=== PATIENT | male | born 1965 | race Caucasian/White ===

== ENCOUNTER → 2020-04-06 | Outpatient (CLI) | payer BC ==
[2020-04-06 11:06] LABS: Basophils # (A) 0.1 k/uL (0-0.2); Basophils % (A) 1 %; Eosinophils # (A) 0.3 k/uL (0-0.7); Eosinophils % (A) 3 %; HCT 45.8 % (39.0-53.0); HGB 14.6 gm/dL (13.0-17.5); Lymphocytes # (A) 2.2 k/uL (1.0-4.8); Lymphocytes % (A) 22 %; MCH 27.5 pg (25.0-35.0); MCHC 31.8 g/dL (31.0-37.0); MCV 86.4 fL (80.0-100.0); Mean Platelet Volume 6.9; Monocytes # (A) 0.4 k/uL (0-1.0); Monocytes % (A) 4 %; Neutrophils # (A) 6.8 k/uL (1.3-7.7); Neutrophils % (A) 68 %; Platelet Count 240 k/uL (150-450); RDW 13.9 % (11.5-15.5)
[2020-04-06 11:10] LABS: Potassium 4.5 mmol/L (3.5-5.1)
== END | disposition home or self-care (01) ==
LOC: LABPAT 09:33
PROVIDERS: ATTEND Orthopaedic Surgery
DX: Z01.818 Encounter for other preprocedural examination (principal); M23.92 Unspecified internal derangement of left knee
CPT/HCPCS: 36415; 80051; 85025; 93005

== ENCOUNTER 2020-04-12 07:05 | Day surgery (SDC) | payer BC ==
[2020-04-09 15:36] VITALS: BMI 59.1
--- NOTE | 2020-04-11 13:53 | HP ---
HISTORY AND PHYSICAL DATE OF SURGERY: 04/12/2020 Ronnie Rowell is a 54-year-old patient seen with progressive left knee pain. After treatment options were discussed with him, he elected to proceed with left knee arthroscopy. Consent was obtained. PAST MEDICAL HISTORY: Hypertension. PAST SURGICAL HISTORY: Noncontributory. DAILY MEDICATIONS: Antihypertensive. ALLERGIES: None. SOCIAL HISTORY: Denies tobacco use. PHYSICAL EVALUATION OF THE LEFT KNEE: His range of motion is 0-120. Mild effusion. Tenderness medial joint line, tenderness lateral joint line. Positive medial Maldonado's. Positive lateral Maldonado's. Ligaments stable. Hip rotation without pain. Distal neurovascular exam is intact. RADIOGRAPHS OF THE LEFT KNEE: Reveal some mild osteoarthritic changes. An MRI of the left knee revealed a medial meniscal tear, lateral meniscal tear. Moderate effusion. IMPRESSION: 1. Internal derangement, left knee with medial and lateral meniscal tears. 2. Left knee osteoarthritis. 3. Hypertension. 4. Morbid obesity. PLAN: Left knee arthroscopy with partial meniscectomy, partial synovectomy and debridement. MMODL / IJN: [id number] /
[~2020-04-12 07:05] MED LIST: DEXAMETHASONE SOD PHOSPHATE 10 MG/ML 1 ML VIAL IV ONE; LACTATED RINGERS 1,000 ML IV SCH; LIDOCAINE 1% (10MG/ML) FOR IV START INTRADERMA PRN; ONDANSETRON 4 MG/2 ML VIAL IVP ONE; ceFAZolin 3 GM in SODIUM CHLORIDE 0.9% 100 ML IVPB ONE
[2020-04-12] MEDS ORDERED: ONDANSETRON 4 MG/2 ML VIAL ONE (07:43)
[2020-04-12] MEDS ORDERED: fentaNYL (PF) 50 MCG/ML 2 ML AMP ONE (08:20)
[2020-04-12] MEDS ORDERED: LIDOCAINE 1% INJ 10MG/ML (20 ML MDV) ONE (08:20)
[2020-04-12] MEDS ORDERED: PROPOFOL 10 MG/ML 20 ML VIAL IV ONE (08:20)
[2020-04-12] MEDS ORDERED: SUCCINYLCHOLINE CHLORIDE VIAL 200 MG/10 ML VIAL IV ONE (08:20)
[2020-04-12] MEDS ORDERED: MIDAZOLAM 2 MG/2 ML VIAL ONE (08:20)
[2020-04-12] MEDS ORDERED: BUPIVACAINE (PF) 0.25% 30 ML VIAL INTRAARTIC ONE ×2 (08:50→09:05)
--- NOTE | 2020-04-12 09:21 | P.OP ---
Date of Procedure: 04/12/20 Preoperative Diagnosis: Internal derangement left knee Postoperative Diagnosis: 1. Tear medial meniscus left knee 2. Grade 4 chondromalacia medial femoral condyle left knee 3. Grade 3/4 chondromalacia patellofemoral joint left knee 4. Medial plica left knee 5. Reactive synovitis medial, lateral and suprapatellar compartments left knee Procedure(s) Performed: 1. Arthroscopic partial medial meniscectomy left knee 2. Arthroscopic chondroplasty medial femoral condyle left knee 3. Arthroscopic microfracture medial femoral condyle left knee 4. Arthroscopic chondroplasty patellofemoral joint left knee 5. Arthroscopic resection medial plica left knee 6. Arthroscopic partial synovectomy medial, lateral and suprapatellar compartments left knee Anesthesia: ALEXA, local Surgeon: Chandler Powell Estimated Blood Loss (ml): 7 Pathology: none sent Condition: stable Disposition: PACU Indications for Procedure: 54-year-old patient seen with progressive left knee pain. After treatment options were discussed, he elected to proceed with arthroscopy. Operative Findings: See description of procedure Description of Procedure: Patient was taken to the operative suite. Patient underwent a general anesthetic by the department of anesthesia. Patient was given preoperative antibiotics. The left lower extremity was placed in a well-padded arthroscopic leg hauser. The left leg was prepped and draped in the normal sterile orthopedic fashion. A lateral parapatellar and suprapatellar incision was made. Trochars were inserted. Arthroscopy was initiated. Suprapatellar pouch revealed diffuse thick reactive synovitis. The patellofemoral joint appeared to articulate congruently. There was grade 3/4 chondromalacia involving the patella and femoral sulcus with some osteochondral tears present. The scope was guided into the medial gutter. There was a plica which impinged along the medial femoral condyle with range of motion and no loose bodies were identified. The scope was then guided into the medial compartment. A medial parapatellar incision was made. Trocar inserted followed by probe. There was a radial tear involving the posterior horn medial meniscus. There were grade 4 chondromalacia changes of medial femoral condyle with large osteochondral flap tears. There was thick reactive synovitis anteriorly. I performed a partial medial meniscectomy. I performed a chondroplasty of the medial femoral condyle. I performed a partial synovectomy. There was no exposed bone medial femoral condyle. I performed a microfracture to the area penetrated the bone with resultant bleeding at the microfracture site. The residual meniscus was stable. There was good decompression of the synovitis. Scope and probe were then guided into the intercondylar notch. Cruciates were identified, probed and fo und to be stable. The scope and probe were then guided into lateral compartment. The lateral meniscus was probed and found to be stable. There were grade 2 chondromalacia changes lateral compartment with no osteochondral tears present. There was thick synovitis anteriorly. I introduced a motorized shaver and performed a partial synovectomy decompressing reactive synovitis. There was good decompression of the synovitis. The scope was in guided back into the suprapatellar compartment. I introduced a motorized shaver into the super compartment. I debrided some piecemeal fragments of meniscus I encountered. I performed a chondroplasty of the patella and femoral sulcus getting down to stable osteochondral tissue. I performed a partial synovectomy decompressing the thick reactive synovitis. The shaver was removed. There appeared be good decompression of synovitis. The residual osteochondral surface of the patellofemoral joint appeared stable. I took one more look on the entire knee, no residual debris. Instruments were now removed from the joint. The joint was infiltrated with .25% Marcaine. Steri-Strips were applied to the portal sites. Sterile dressings were applied. The patient was placed into a HENRY hose. No tourniquet was utilized. The patient was awakened, transferred to a bed and taken to recovery stable satisfactory condition.
[2020-04-12 09:27] VITALS: TEMP 97.5
[2020-04-12] MEDS: HYDROmorphone 0.5 MG/0.5 ML SYRINGE IVP PRN ×2 (09:27→09:34)
[2020-04-12] MEDS ORDERED: HYDROcodone/APAP 7.5-325MG 1 EACH TAB ONE (10:02)
[2020-04-12] MEDS ORDERED: HYDROcodone/APAP 7.5-325MG 1 EACH TAB PO ONE (10:05)
[2020-04-12 10:51] VITALS: BP 125/74; PULSE 77; RESP 12
== END 2020-04-12 10:57 | disposition home or self-care (01) ==
LOC: OR 07:05
PROVIDERS: ATTEND Orthopaedic Surgery
DX: M23.222 Derangement of posterior horn of medial meniscus due to old tear or injury, left knee (principal); M17.12 Unilateral primary osteoarthritis, left knee; M65.862 Other synovitis and tenosynovitis, left lower leg; M22.42 Chondromalacia patellae, left knee; M67.52 Plica syndrome, left knee; I10 Essential (primary) hypertension; G47.33 Obstructive sleep apnea (adult) (pediatric); E66.01 Morbid (severe) obesity due to excess calories; Z68.43 Body mass index [BMI] 50.0-59.9, adult; Z99.89 Dependence on other enabling machines and devices; Z79.899 Other long term (current) drug therapy
CPT/HCPCS: 29881; 29879; J2250; J0330; J1100; J0690; J2405; J2001; J3010; J2704; J1170

== ENCOUNTER 2021-06-12 09:21 | Emergency (ER) | payer BC ==
[2021-06-12 09:33] VITALS: BP 195/101; PULSE 76; RESP 18; TEMP 98.3
[2021-06-12] MEDS ORDERED: KETOROLAC 15 MG/ML 1 ML VIAL IM STA (09:54)
--- NOTE | 2021-06-12 10:47 | XR ---
EXAMINATION TYPE: XR knee 4V LT DATE OF EXAM: 06/12/2021 CLINICAL HISTORY: pain TECHNIQUE: 4 views of the left knee are obtained. COMPARISON: None. FINDINGS: There is no acute fracture/dislocation. The tri-compartment joint spaces appear moderatel y narrowed. The overlying soft tissue appears unremarkable. Small joint effusion. IMPRESSION: There is no acute fracture or dislocation ICD 10 NO FRACTURE, INITIAL EVALUATION
--- NOTE | 2021-06-12 10:53 | ED ---
Lower Extremity Injury HPI - General Chief Complaint: Extremity Injury, Lower Stated Complaint: Lt Knee Pain Source: patient, RN notes reviewed Mode of arrival: ambulatory Limitations: no limitations - History of Present Illness Initial Comments: Patient is a 55-year-old male that presents to emergency department complaining of left knee pain. He notes that he has a history of chronic bilateral knee pain as he is a artery set individual. He notes that over the last 1-2 days his left knee has become increasingly more painful. He notes that he does take Motrin for pain at home but it is not help. He notes that he has tried calling her orthopedics office is to see if they get in as primary care. He notes he can emergency room as a last resort for evaluation. He denied any injury or trauma to his left knee. He denied any chest pain shortness of breath headache nausea vomiting diarrhea constipation fever fatigue chills. He denied any weakness numbness tingling loss of sensation range of motion in his left lower extremity. - Related Data Home Medications Medication Instructions Recorded Confirmed hydroCHLOROthiazide 25 mg PO DAILY 04/09/20 04/09/20 Previous Rx's Medication Instructions Recorded HYDROcodone/APAP 7.5-325MG [[place] 1 each PO Q6HR PRN #15 tab 04/12/20 7.5] Allergies Allergy/AdvReac Type Severity Reaction Status Date / Time No Known Allergies Allergy Verified 06/12/21 09:30 Review of Systems ROS Statement: Those systems with pertinent positive or pertinent negative responses have been documented in the HPI. ROS Other: All systems not noted in ROS Statement are negative. Past Medical History Past Medical History: Hypertension, Sleep Apnea/CPAP/BIPAP History of Any Multi-Drug Resistant Organisms: None Reported Past Surgical History: No Surgical Hx Reported Additional Past Surgical History / Comment(s): colonoscopy Past Anesthesia/Blood Transfusion Reactions: No Reported Reaction Past Psychological History: No Psychological Hx Reported Smoking Status: Never smoker Past Alcohol Use History: Occasional Past Drug Use History: None Reported - Past Family History Mother Family Medical History: No Reported History General Exam Limitations: no limitations General appearance: alert, in no apparent distress, obese (Morbidly) Head exam: Present: atraumatic, normocephalic, normal inspection Eye exam: Present: normal appearance, PERRL, EOMI. Absent: scleral icterus, conjunctival injection, periorbital swelling Neck exam: Present: normal inspection Respiratory exam: Present: normal lung sounds bilaterally. Absent: respiratory distress, wheezes, rales, rhonchi, stridor Cardiovascular Exam: Present: regular rate, normal rhythm, normal heart sounds. Absent: systolic murmur, diastolic murmur, rubs, gallop, clicks Left Hip exam: Present: normal inspection, full ROM Upper Leg exam: Present: normal inspection, full ROM Knee exam: Present: normal inspection, full ROM, tenderness (Medial aspect), pain/laxity with valgus, full knee extension. Absent: swelling, abrasion, laceration, pain w/ pronation/supination, posterior draw sign, pain/laxity with varus Neurological exam: Present: alert, oriented X3 Psychiatric exam: Present: normal affect, normal mood Skin exam: Present: warm, dry, intact, normal color. Absent: rash Course Vital Signs 06/12/21 09:30 Temperature 98.3 F Pulse Rate 76 Respiratory 18 Rate Blood Pressure 195/101 O2 Sat by Pulse 97 Oximetry Medical Decision Making - Medical Decision Making Patient is a 55-year-old male complaining of worsening chronic left knee pain. X-ray of left knee, 15 mg of Toradol ordered. Upon examination patient does have valgus stress test pain on the medial aspect of his left knee. X-ray negative for any acute fractures dislocations. Patient most likely has a knee sprain or soft tissue injury, will be given thorough for orthopedics. Case discussed with Dr. Rosa, patient discharge home with follow-up to orthopedics and primary care. - Radiology Data Radiology results: report reviewed, image reviewed X-ray left knee: There is no acute fracture dislocation. Disposition Clinical Impression: Left knee sprain, Left knee pain Disposition: HOME SELF-CARE Condition: Stable Instructions (If sedation given, give patient instructions): Knee Sprain (ED) Additional Instructions: Please return to the Emergency Department if symptoms worsen or any other concerns. Follow-up with primary care 1-2 days. Follow-up with orthopedics as soon as possible. Take Tylenol Motrin as needed for pain. Use as tolerated. Avoid any strenuous activity or exercise. Is patient prescribed a controlled substance at d/c from ED?: No Referrals: Aide Aragon MD [Primary Care Provider] - 1-2 days Kishor Bond PAC [PHYSICIAN ONLINE PROGRAM COORDINATOR] - 1-2 days Time of Disposition: 11:05
== END 2021-06-12 11:00 | disposition home or self-care (01) ==
LOC: EC 09:21
DX: S83.92XA Sprain of unspecified site of left knee, initial encounter (principal); I10 Essential (primary) hypertension; X58.XXXA Exposure to other specified factors, initial encounter
CPT/HCPCS: 99283; 96372; 73564; J1885

== ENCOUNTER 2021-10-17 08:51 | Emergency (ER) | payer BC ==
[2021-10-17] MEDS ORDERED: IBUPROFEN 800 MG TAB PO STA (09:06)
[2021-10-17] MEDS ORDERED: ACETAMINOPHEN TAB 325 MG TAB PO STA (09:06)
[2021-10-17] MEDS ORDERED: SODIUM CHLORIDE 0.9% 50 ML IVPB ONE (10:15)
--- NOTE | 2021-10-17 10:18 | ED ---
URI HPI - General Chief Complaint: Upper Respiratory Infection Stated Complaint: Covid +, Fever Time Seen by Provider: 10/17/21 09:00 Source: patient, RN notes reviewed Mode of arrival: ambulatory Limitations: no limitations - History of Present Illness Initial Comments: This is a 55-year-old male presents emergency Department with chief complaint of COVID-19. Patient states he started with sore throat and fever last night. Patient states that he did at home test which was positive. Patient states his eyes: Respiratory evaluation. He has not had a recent, Motrin he did take some DayQuil this morning. Patient states that he has more sore throat dry cough no shortness of breath no abdominal pain no GI symptoms. - Related Data Home Medications Medication Instructions Recorded Confirmed hydroCHLOROthiazide 25 mg PO DAILY 04/09/20 04/09/20 Previous Rx's Medication Instructions Recorded HYDROcodone/APAP 7.5-325MG [[place] 1 each PO Q6HR PRN #15 tab 04/12/20 7.5] Allergies Allergy/AdvReac Type Severity Reaction Status Date / Time Sulfa (Sulfonamide AdvReac Unknown Verified 10/17/21 08:58 Antibiotics) Review of Systems ROS Statement: Those systems with pertinent positive or pertinent negative responses have been documented in the HPI. ROS Other: All systems not noted in ROS Statement are negative. Past Medical History Past Medical History: Hypertension, Sleep Apnea/CPAP/BIPAP History of Any Multi-Drug Resistant Organisms: None Reported Past Surgical History: No Surgical Hx Reported, Orthopedic Surgery Additional Past Surgical History / Comment(s): colonoscopy Past Anesthesia/Blood Transfusion Reactions: No Reported Reaction Past Psychological History: No Psychological Hx Reported Smoking Status: Never smoker Past Alcohol Use History: Occasional Past Drug Use History: None Reported - Past Family History Mother Family Medical History: No Reported History General Exam Limitations: no limitations General appearance: alert, in no apparent distress Head exam: Present: atraumatic, normocephalic, normal inspection Eye exam: Present: normal appearance, PERRL, EOMI. Absent: scleral icterus, conjunctival injection, periorbital swelling ENT exam: Present: normal exam, normal oropharynx, mucous membranes moist Neck exam: Present: normal inspection, full ROM. Absent: tenderness, menin gismus, lymphadenopathy Respiratory exam: Present: normal lung sounds bilaterally. Absent: respiratory distress, wheezes, rales, rhonchi, stridor Cardiovascular Exam: Present: regular rate, normal rhythm, normal heart sounds. Absent: systolic murmur, diastolic murmur, rubs, gallop, clicks GI/Abdominal exam: Present: soft, normal bowel sounds. Absent: distended, tenderness, guarding, rebound, rigid Course Vital Signs 10/17/21 10/17/21 08:52 09:23 Temperature 102.1 F H Pulse Rate 95 Respiratory 22 20 Rate Blood Pressure 177/89 O2 Sat by Pulse 98 Oximetry Medical Decision Making - Medical Decision Making Patient presented for covid 19, patient did receive monoclonal antibodies vitals are stable patient was given antipyretics did discuss return parameters. - Lab Data Lab Results 10/17/21 Range/Units 09:21 Coronavirus (PCR) Detected A (Not Detectd) Disposition Clinical Impression: COVID-19 Disposition: HOME SELF-CARE Condition: Stable Instructions (If sedation given, give patient instructions): Coronavirus Disease 2019 (COVID-19) Additional Instructions: Please return to the Emergency Department if symptoms worsen or any other concerns. Is patient prescribed a controlled substance at d/c from ED?: No Referrals: Aide Aragon MD [Primary Care Provider] - 1-2 days Time of Disposition: 10:18
[2021-10-17 10:42] VITALS: RESP 18; TEMP 99.2
[2021-10-17] MEDS ORDERED: SOTROVIMAB (EUA) 500 MG in SODIUM CHLORIDE 0.9% 100 ML IVPB ONE (10:45)
[2021-10-17 12:21] VITALS: BP 158/83; PULSE 71
== END 2021-10-17 12:17 | disposition home or self-care (01) ==
LOC: EC 08:51
DX: U07.1 COVID-19 (principal); I10 Essential (primary) hypertension; Z88.2 Allergy status to sulfonamides
CPT/HCPCS: 99283; 87635; Q0247

== ENCOUNTER 2022-04-23 12:25 | Emergency (ER) | payer BC ==
[2022-04-23 13:03] VITALS: TEMP 98.1
[2022-04-23] MEDS ORDERED: methylPREDNISolone SOD SUCCI 125 MG/2 ML VIAL IM ONE (16:33)
[2022-04-23] MEDS ORDERED: HYDROcodone/APAP 10-325MG 1 EACH TAB PO ONE (16:33)
[2022-04-23] MEDS ORDERED: ACET/COD 300 MG/30 MG STARTER PACK 6 TAB BTL PO STA (16:34)
--- NOTE | 2022-04-23 16:38 | ED ---
Back Pain HPI - General Chief Complaint: Back Pain/Injury Stated Complaint: L leg is numb Time Seen by Provider: 04/23/22 15:52 Source: patient Limitations: no limitations - History of Present Illness Initial Comments: Patient is a 56-year-old male who presents to the emergency department with a chief complaint of lower back pain. States symptoms started 2 hours ago. Patient thinks the pain is due to being very overweight. Denies injury states he has been sitting in his chair today. States initially the pain was significant in the left lower back with numbness and tingling down the left leg which has improved. Took Motrin for pain with some relief. Patient states this has happened before several years ago. Denies numbness and tingling in the groin and buttock region. Denies bowel and bladder incontinence and retention. Denies leg weakness. No history of cancer. Denies fever and chills. - Related Data Home Medications Medication Instructions Recorded Confirmed hydroCHLOROthiazide 25 mg PO DAILY 04/09/20 04/09/20 Previous Rx's Medication Instructions Recorded HYDROcodone/APAP 7.5-325MG [[place] 1 each PO Q6HR PRN #15 tab 04/12/20 7.5] Lidocaine 5% Patch [Lidoderm 5% 1 patch TOPICAL DAILY PRN #7 patch 04/23/22 Patch] predniSONE 50 mg PO DAILY #5 tab 04/23/22 Allergies Allergy/AdvReac Type Severity Reaction Status Date / Time Sulfa (Sulfonamide AdvReac Unknown Verified 04/23/22 13:03 Antibiotics) Review of Systems ROS Statement: Those systems with pertinent positive or pertinent negative responses have been documented in the HPI. ROS Other: All systems not noted in ROS Statement are negative. Past Medical History Past Medical History: Hypertension, Sleep Apnea/CPAP/BIPAP History of Any Multi-Drug Resistant Organisms: None Reported Past Surgical History: No Surgical Hx Reported, Orthopedic Surgery Additional Past Surgical History / Comment(s): colonoscopy Past Anesthesia/Blood Transfusion Reactions: No Reported Reaction Past Psychological History: No Psychological Hx Reported Smoking Status: Never smoker Past Alcohol Use History: Occasional Past Drug Use History: None Reported - Past Family History Mother Family Medical History: No Reported History General Exam Limitations: no limitations Course Vital Signs 04/23/22 04/23/22 13:01 17:18 Temperature 98.1 F Pulse Rate 62 58 L Respiratory 20 16 Rate Blood Pressure 188/94 180/87 O2 Sat by Pulse 97 97 Oximetry Medical Decision Making - Medical Decision Making This is a 56-year-old male who presents with lower back pain. Thorough history and examination were performed. No injury. No spinal or paravertebral tenderness. No evidence of focal deficit. Pain improved with symptomatic treatment in the emergency department. Given patient's report of radicular symptoms I will discharge patient with prednisone for musculoskeletal back pain with radiculopathy. He is to follow-up with primary care provider. Dr. Saldaña is my attending. Disposition Clinical Impression: Mechanical back pain Disposition: HOME SELF-CARE Condition: Good Instructions (If sedation given, give patient instructions): Acute Low Back Pain (ED) Additional Instructions: Please take medication as directed. Start prednisone prescription tomorrow. Lidocaine patches are offered [id number]. Check to see if your prescription will be more expensive than [id number] before filling it. Continue to lightly stretch the back. Follow-up with primary care provider in one to 2 weeks if symptoms do not improve who can refer you to natural resource specialist. return to the emergency department if you experience new, concerning, or worsening symptoms. Prescriptions: Lidocaine 5% Patch [Lidoderm 5% Patch] 1 patch TOPICAL DAILY PRN #7 patch PRN Reason: Pain predniSONE 50 mg PO DAILY #5 tab Is patient prescribed a controlled substance at d/c from ED?: No Referrals: Aide Aragon MD [Primary Care Provider] - 1-2 days Time of Disposition: 19:19
[2022-04-23] MEDS ORDERED: LIDOCAINE 5% PATCH TOPICAL SCH (16:45)
[2022-04-23 17:20] VITALS: BP 180/87; PULSE 58; RESP 16
== END 2022-04-23 17:20 | disposition home or self-care (01) ==
LOC: EC 12:25
DX: M54.50 Low back pain, unspecified (principal); R20.0 Anesthesia of skin; I10 Essential (primary) hypertension; Z88.2 Allergy status to sulfonamides; Z79.899 Other long term (current) drug therapy
CPT/HCPCS: 99283; 96372; J2930

== ENCOUNTER → 2023-03-31 | Outpatient (CLI) | payer OTHER ==
[2023-03-31 15:30] LABS: Blood Urea Nitrogen 26.1 mg/dL (9.0-27.0); Carbon Dioxide 21.6 mmol/L (21.6-31.8); Chloride 108 mmol/L (96-109); Potassium 4.5 mmol/L (3.5-5.5); Sodium 142 mmol/L (135-145)
[2023-03-31 16:16] LABS: HCT 37.7 % (39.6-50.0); HGB 12.6 d/dL (12.0-15.0); MCH 30.2 pg (27.0-32.0); MCHC 33.4 d/dL (32.0-37.0); MCV 90.4 FL (80.0-97.0); NRBC Per 100 WBC 0 X 10*3/uL (0.00-0.01); Platelet Count 233 X 10*3/uL (140-440); RBC 4.17 X 10*6/uL (4.40-5.60); WBC 9.04 X 10*3/uL (4.50-10.00)
== END | disposition home or self-care (01) ==
LOC: LABPAT 10:57
PROVIDERS: ATTEND Internal Medicine Interventional Cardiology
DX: Z01.812 Encounter for preprocedural laboratory examination (principal); R94.39 Abnormal result of other cardiovascular function study
CPT/HCPCS: 36415; 80051; 82565; 84520; 85027

== ENCOUNTER 2023-04-03 06:19 | Day surgery (SDC) | payer BC, OTHER ==
[~2023-04-03 06:19] MED LIST changes: +ALPRAZolam 0.25 MG TAB PO PRN; +ALPRAZolam 0.5 MG TAB PO PRN; -DEXAMETHASONE SOD PHOSPHATE 10 MG/ML 1 ML VIAL IV ONE; +HEPARIN SODIUM,PORCINE 10,000 UNIT in SODIUM CHLORIDE 0.9% 1,000 ML IRRIGATION PRN; +HEPARIN SODIUM,PORCINE 2,500 UNIT in SODIUM CHLORIDE 0.9% 250 ML IRRIGATION PRN; -LACTATED RINGERS 1,000 ML IV SCH; -LIDOCAINE 1% (10MG/ML) FOR IV START INTRADERMA PRN; +NITROGLYCERIN SL TABS 0.4 MG TAB SUBLINGUAL PRN; -ONDANSETRON 4 MG/2 ML VIAL IVP ONE; +SODIUM CHLORIDE 0.9% 1,000 ML in EMPTY BAG 1 BAG IV SCH; -ceFAZolin 3 GM in SODIUM CHLORIDE 0.9% 100 ML IVPB ONE
[2023-04-03] MEDS ORDERED: ASPIRIN 325 MG TAB PO ONE (07:00)
[2023-04-03] MEDS ORDERED: ATORVASTATIN 80 MG TAB PO ONE (07:00)
[2023-04-03] MEDS ORDERED: SODIUM CHLORIDE 0.9% 1,000 ML IV ONE (07:09)
[2023-04-03 07:13] VITALS: RESP 16; TEMP 98.3
[2023-04-03] MEDS ORDERED: VERAPAMIL 2.5 MG/ML 2 ML AMP ONE (07:13)
[2023-04-03] MEDS ORDERED: fentaNYL (PF) 50 MCG/ML 2 ML AMP ONE (07:13)
[2023-04-03] MEDS ORDERED: HEPARIN SODIUM 1,000 UN/ML (10ML VL) ONE (07:13)
[2023-04-03] MEDS ORDERED: fentaNYL (PF) 50 MCG/ML 2 ML AMP IVP ONE (07:30)
[2023-04-03] MEDS ORDERED: LIDOCAINE 1% INJ 10MG/ML (5 ML VIAL-PF) SQ ONE (07:39)
[2023-04-03] MEDS ORDERED: MIDAZOLAM 2 MG/2 ML VIAL IVP ONE (07:40)
[2023-04-03] MEDS ORDERED: VERAPAMIL SYRINGE (5 MG/10 ML) INTRAARTER ONE (07:40)
[2023-04-03] MEDS ORDERED: HEPARIN SODIUM 1,000 UN/ML (10ML VL) IVP ONE (07:44)
[2023-04-03] MEDS ORDERED: IOPAMIDOL-370 100ML BTL INJ ONE ×2 (07:51)
[2023-04-03] MEDS ORDERED: RX INFO: IV CONTRAST WAS GIVEN 1 EACH MISC MISCELLANE PRN (08:09)
--- NOTE | 2023-04-03 08:14 | P.CARDCATH ---
Date of Procedure: 04/03/23 Description of Procedure: Cardiac Catheterization: The patient is a 57-year-old male with known history of hypertension, hyperlipidemia who has been complaining of progressive dyspnea and peripheral edema. He had an abnormal MPI. Recommendations were made regarding cardiac catheterization, the risks and the complications were discussed with the patient who is in full understanding and agreement. Procedure Description: Patient was brought to quality assurance/r&d lab technician in fasting semi-sedated state after receiving Fentanyl and Benadryl achieiving moderate conscious sedated state. Using Xylocaine Anesthesia and Seldinger technique, a 6-Burmese sheath was introduced in the right radial artery . Subsequently, selective coronary angiography was performed using a 5-[place] 3.5 bend Anderson catheter. Multiple views of the coronary artery including hemiaxial views were obtained. The 5-[place]ese pigtail catheter was used to cross the aortic valve and LVEDP was calculated. Left ventriculogram was performed in the MOYER view. Following that, catheter and sheath were removed. Hemostasis was obtained with deployment of TR band . There was no immediate complication. Patient was returned to room in stable condition. Of note, the patient received a total of 5000 units of intravenous heparin as well as intra-arterial verapamil. Findings: Left main: This is a large size vessel, bifurcating into LAD and left circumflex, left main has no high-grade stenosis LAD: This is a large size vessel, reaching to the apex, giving rise to a large diagonal branch, the LAD has no obstructive disease Left circumflex: This is a large nondominant vessel giving rise to 2 obtuse marginal branch, the left circumflex has no obstructive disease RCA: This is a large dominant vessel, bifurcating distally into PDA and PLV, the RCA has no obstructive disease Left Ventriculogram: Performed in the MOYER view and showed a normal left ventri vamsi size and systolic function, ejection fraction about 60%, it was no significant mitral regurgitation. Hemodynamics: There was no gradient across the aortic valve , LVEDP was 18-20 mmHg Conclusion: 1. No evidence of obstructive CAD 2. Right dominance 3. Normal left ventricle size and systolic function Recommendations: I have recommended to continue medical therapy with aggressive coronary risks modifications. The findings and the recommendations were discussed with the patient and the family and they were in full understanding and agreement. Duration of sedation is 16 minutes.
[2023-04-03] MEDS ORDERED: SODIUM CHLORIDE 0.9% 1,000 ML IV SCH (08:15)
[2023-04-03 18:26] VITALS: BP 131/65; PULSE 58
[2023-04-03] MEDS ORDERED: METOPROLOL TARTRATE 50 MG TAB PO SCH (21:00)
[2023-04-03] MEDS ORDERED: ATORVASTATIN 40 MG TAB PO SCH (21:00)
[2023-04-04] MEDS ORDERED: EZETIMIBE 10 MG TAB PO SCH (09:00)
[2023-04-04] MEDS ORDERED: LOSARTAN-HCTZ 50-12.5 MG 1 EACH TAB PO SCH (09:00)
[2023-04-04] MEDS ORDERED: ASPIRIN 81 MG PO SCH (09:00)
== END 2023-04-03 12:15 | disposition home or self-care (01) ==
LOC: CATHCVL 06:19
PROVIDERS: ATTEND Internal Medicine Interventional Cardiology
DX: R94.39 Abnormal result of other cardiovascular function study (principal); I10 Essential (primary) hypertension; E78.2 Mixed hyperlipidemia; E78.00 Pure hypercholesterolemia, unspecified; G47.33 Obstructive sleep apnea (adult) (pediatric); Z79.82 Long term (current) use of aspirin; Z79.899 Other long term (current) drug therapy
CPT/HCPCS: 93458; C1769 ×2; C1894; J2250; J2001; J3010; J1644; Q9967

== ENCOUNTER 2023-08-04 10:05 | Day surgery (SDC) | payer OTHER ==
[~2023-08-04 10:05] MED LIST changes: -ALPRAZolam 0.25 MG TAB PO PRN; -ALPRAZolam 0.5 MG TAB PO PRN; -HEPARIN SODIUM,PORCINE 10,000 UNIT in SODIUM CHLORIDE 0.9% 1,000 ML IRRIGATION PRN; -HEPARIN SODIUM,PORCINE 2,500 UNIT in SODIUM CHLORIDE 0.9% 250 ML IRRIGATION PRN; +LACTATED RINGERS 1,000 ML IV SCH; -NITROGLYCERIN SL TABS 0.4 MG TAB SUBLINGUAL PRN; -SODIUM CHLORIDE 0.9% 1,000 ML in EMPTY BAG 1 BAG IV SCH
[2023-08-04 12:21] VITALS: TEMP 97.6
[2023-08-04] MEDS ORDERED: PROPOFOL 10 MG/ML 20 ML VIAL IV ONE (12:33)
--- NOTE | 2023-08-04 12:48 | P.PCN ---
Date of Procedure: 08/04/23 Procedure(s) Performed: BRIEF HISTORY: Patient is a 57-year-old pleasant white male scheduled for an elective colonoscopy as a part of screening for colon cancer. PROCEDURE PERFORMED: Colonoscopy with snare polypectom and cold biopsy y. PREOPERATIVE DIAGNOSIS: Screening for colon cancer. IV sedation per Anesthesia. PROCEDURE: After informed consent was obtained, the patient, was brought into the endoscopy unit. IV sedation was administered by Anesthesia under continuous monitoring. Digital rectal examination was normal. Initially the Olympus CF-160 flexible video colonoscope was then inserted in the rectum, gradually advanced into the cecum without any difficulty. Careful examination was performed as the scope was gradually being withdrawn. Ileocecal valve and the appendiceal orifice were visualized and appeared normal. Prep was excellent. Mucosa of the cecum appeared normal. In the sigmoid: There was a 4 mm polyp that was removed by cold biopsy. There was a 5 mm polyp that was removed by cold snare polypectomy. Rest of the, ascending colon, transverse colon, descending colon, sigmoid colon, and rectum appeared normal. In the sigmoid: There was a 5 limited polyp removed by snare polypectomy. Retroflexion was performed in the rectum and no lesions were seen. The patient tolerated the procedure well. IMPRESSION: 4 mm and 5 mm ascending colon polyp status post cold biopsy and snare polypectomy respectively 5 mm; sigmoid polyp status post cold snare polypectomy RECOMMENDATIONS: Findings of this examination were discussed with the patient well as his family.. He was advised to follow with the biopsy results. If the biopsies adenoma he can have a repeat colonoscopy in 5 years
[2023-08-04 13:18] VITALS: BP 119/73; PULSE 65; RESP 19
== END 2023-08-04 13:17 | disposition home or self-care (01) ==
LOC: ORWHC2ENDO 10:05
PROVIDERS: ATTEND Internal Medicine Gastroenterology
DX: Z12.11 Encounter for screening for malignant neoplasm of colon (principal); D12.0 Benign neoplasm of cecum; D12.2 Benign neoplasm of ascending colon; D12.5 Benign neoplasm of sigmoid colon; I10 Essential (primary) hypertension; E78.5 Hyperlipidemia, unspecified; G47.33 Obstructive sleep apnea (adult) (pediatric); Z88.2 Allergy status to sulfonamides; Z79.82 Long term (current) use of aspirin; Z79.899 Other long term (current) drug therapy
CPT/HCPCS: 45380; 45385; 88305